=== PATIENT | male | born 1950 | race Caucasian/White ===

== ENCOUNTER → 2017-08-20 | Outpatient (CLI) | payer OTHER ==
[~2017-08-20] MED LIST: ALBUMIN 25% 100 ML SOLN IV ONE; LIDOCAINE 1% 300 MG/30 ML SDV ONE
== END ==
LOC: FIMAGING 13:39 → EDBD 14:30
PROC: 0W9G30Z Drainage of Peritoneal Cavity with Drainage Device, Percutaneous Approach (ICD-10-PCS; principal; 2017-08-20)
DX: R18.8 Other ascites (principal); K74.60 Unspecified cirrhosis of liver
CPT/HCPCS: 49083; P9047

== ENCOUNTER → 2017-09-10 | Outpatient (CLI) | payer OTHER | LOC: FIMAGING 13:54 | PROC: 0W9F3ZZ Drainage of Abdominal Wall, Percutaneous Approach (ICD-10-PCS; principal; 2017-09-10) | DX: R18.8 Other ascites (principal); K74.60 Unspecified cirrhosis of liver | CPT/HCPCS: 49083; P9047 ==

== ENCOUNTER → 2017-10-19 | Outpatient (CLI) | payer OTHER | LOC: FIMAGING 11:39 | PROC: 0W9G3ZZ Drainage of Peritoneal Cavity, Percutaneous Approach (ICD-10-PCS; principal; 2017-10-19) | DX: K74.60 Unspecified cirrhosis of liver (principal); R18.8 Other ascites | CPT/HCPCS: 49083; P9047 ==

== ENCOUNTER → 2017-10-29 | Outpatient (CLI) | payer OTHER | LOC: FIMAGING 11:48 | PROC: 0W9F30Z Drainage of Abdominal Wall with Drainage Device, Percutaneous Approach (ICD-10-PCS; principal; 2017-10-29) | DX: R18.8 Other ascites (principal) | CPT/HCPCS: 49083; P9047 ==

== ENCOUNTER 2017-11-02 16:03 | Emergency (ER) | payer OTHER ==
--- NOTE | 2017-11-02 16:52 | EDPHY ---
H & P Time Seen by Provider: 11/02/17 16:24 HPI/ROS: CHIEF COMPLAINT: "Umbilical hernia pain" HISTORY OF PRESENT ILLNESS: Patient is a 58-year-old male with a history of end -stage cirrhosis, repeat paracentesis and diabetes who presents to the emergency department with pain at his umbilicus secondary to a hernia. Patient states he has had a longstanding umbilical hernia. He also has a large right inguinal hernia. He has seen a surgeon for these but they did not recommend repair. Patient states he has had ongoing pain for the past day at his umbilicus. He feels as though there is slight bulge. He has had no nausea or vomiting. No diarrhea. No blood in his stools. No fever. REVIEW OF SYSTEMS: My complete review of systems is negative except as mentioned in the HPI. Past Medical/Surgical History: Includes cirrhosis, diabetes, hypothyroidism, kidney disease Smoking Status: Never smoked Physical Exam: Vitals noted GENERAL: Well-appearing, in no acute distress, alert. HEENT: Eyes normal to inspection, normal pharynx, no signs of dehydration. NECK: [No thyromegaly, no lymphadenopathy, supple. RESPIRATORY: Clear to auscultation bilaterally, no rales, rhonchi or wheezing. CVS: Regular rate and rhythm, no rubs, murmurs, or gallops. ABDOMEN: Soft, nontender, nondistended, no organomegaly. The patient has the small umbilical defect approximately 2cm in length. There is a small amount of bowel present. This was able to be reduced mechanically. Patient has a large right inguinal hernia. I am able to reduce this. BACK: Normal to inspection, no CVA tenderness. SKIN: Normal color, no rash, warm, dry. No pallor. EXTREMITIES: No pedal edema, no calf tenderness, no Homans sign or cords, no joint swelling. NEURO/PSYCH: Alert and oriented, normal mood and affect, normal motor sensory exam. Constitutional: Initial Vital Signs Temperature (C) 36.5 C 11/02/17 16:17 Heart Rate 68 11/02/17 16:17 Respiratory Rate 16 11/02/17 16:17 Blood Pressure 139/87 H 11/02/17 16:17 O2 Sat (%) 97 11/02/17 16:17 O2 Delivery Mode Room Air Allergies/Adverse Reactions: No Known Allergies Allergy (Unverified 11/02/17 16:14) Home Medications: Medication Instructions Recorded Lactulose 11/02/17 Lantus 11/02/17 Levothyroxine 11/02/17 Oxycodone HCl 11/02/17 Spironolactone-Hctz 25-25 Tab 11/02/17 Xifaxan 11/02/17 Xtampza ER 11/02/17 Medical Decision Making - Diagnostics Imaging Results: Imaging Impressions Abdomen/Pelvis CT 11/02/17 16:53 Impression: 1. Large amount of ascites with small periumbilical hernia and relatively large right inguinal hernia containing ascitic fluid extending into the right side of the scrotal sac. 2. Incidental nonobstructive calculus lower pole left kidney. 3. Mildly thickened bladder wall with trabeculations and diverticula suggestive of underlying bladder outlet obstruction. 4. Moderate splenomegaly. 5. Small lobulated liver compatible underlying cirrhosis. Tips shunt is in place. Findings discussed with Vibha Valerio M.D. at 17:23 hour, 11/02/2017. ED Course/Re-evaluation: In the emergency department I discussed possible etiologies with the patient. I answered all his questions. Patient's umbilical and inguinal hernia were reduced. CT was ordered. Laboratory studies were. CT of the abdomen pelvis: Please refer the dictated report. There is no strangulation or incarceration. Patient does have an umbilical hernia as well as a right inguinal hernia. Patient was also noted to have ascites. Patient's case panel is notable for a sodium 134. Potassium slightly high at 5.1. CO2 was 23. BUN was 49 and creatinine was elevated at 2.8. Glucose was 173. Patient's white count was 4.2. Hematocrit was low at 24. His platelets were low at 37. Patient has a history of renal dysfunction, anemia and thrombocytopenia. I discussed values with the patient. He states these are similar to his baseline. He has follow-up with the primary care physician. He was given on-call physicians contact information. He is also given contact information for Dr. Stanford from General surgery. He is given warnings prior to leaving. He will return with worsening symptoms. Differential Diagnosis: My differential includes but is not limited to umbilical hernia, inguinal hernia , strangulated hernia, incarcerated hernia, small-bowel obstruction, perforation - Data Points Laboratory Results: Laboratory Results 11/02/17 16:58 11/02/17 16:58 11/02/17 11/02/17 16:58 16:58 WBC 4.26 10^3/uL 10^3/uL (3.80-9.50) RBC 2.57 10^6/uL L 10^6/uL (4.40-6.38) Hgb 8.4 g/dL L g/dL (13.7-17.5) Hct 24.5 % L % (40.0-51.0) MCV 95.3 fL fL (81.5-99.8) MCH 32.7 pg pg (27.9-34.1) MCHC 34.3 g/dL g/dL (32.4-36.7) RDW 16.8 % H % (11.5-15.2) Plt Count 37 10^3/uL L 10^3/uL (150-400) MPV 9.7 fL fL (8.7-11.7) Neut % (Auto) 62.4 % % (39.3-74.2) Lymph % (Auto) 9.9 % L % (15.0-45.0) [place] % (Auto) 4.5 % % (4.5-13.0) Eos % (Auto) 22.3 % H % (0.6-7.6) Baso % (Auto) 0.7 % % (0.3-1.7) Nucleat RBC Rel Count 0.0 % % (0.0-0.2) Absolute Neuts (auto) 2.66 10^3/uL 10^3/uL (1.70-6.50) Absolute Lymphs (auto) 0.42 10^3/uL L 10^3/uL (1.00-3.00) Absolute Monos (auto) 0.19 10^3/uL L 10^3/uL (0.30-0.80) Absolute Eos (auto) 0.95 10^3/uL H 10^3/uL (0.03-0.40) Absolute Basos (auto) 0.03 10^3/uL 10^3/uL (0.02-0.10) Absolute Nucleated RBC 0.00 10^3/uL 10^3/uL (0-0.01) Immature Gran % 0.2 % % (0.0-1.1) Immature Gran # 0.01 10^3/uL 10^3/uL (0.00-0.10) RBC/WBC/PLT Morphology TNP Platelet Estimate DECREASED L (ADEQ) Sodium 134 mEq/L L mEq/L (135-145) Potassium 5.1 mEq/L H mEq/L (3.3-5.0) Chloride 108 mEq/L mEq/L (97-110) Carbon Dioxide 23 mEq/l mEq/l (22-31) Anion Gap 3 mEq/L L mEq/L (8-16) BUN 49 mg/dL H mg/dL (7-23) Creatinine 2.8 mg/dL H mg/dL (0.7-1.3) Estimated GFR 23 Glucose 173 mg/dL H mg/dL (70-100) Calcium 8.0 mg/dL L mg/dL (8.5-10.4) Departure - Departure Disposition: Home, Routine, Self-Care Clinical Impression: Abdominal pain Qualifiers: Abdominal location: periumbilical Qualified Code(s): R10.33 - Periumbilical pain Inguinal hernia Qualifiers: Obstruction and gangrene presence: without obstruction or gangrene Laterality: unilateral Recurrence: recurrent Qualified Code(s): K40.91 - Unilateral inguinal hernia, without obstruction or gangrene, recurrent Condition: Good Instructions: Umbilical Hernia (ED) Additional Instructions: Return with increasing pain, vomiting, fever or any other concerns. You been given follow-up information for Dr. ALEXIA Stanford. He is a general surgeon. He can help you with your hernias. Call to make an appointment. Referrals: Hussain Stanford MD [Medical Doctor] - 5-7 days, call for appt. Roman Soler MD [Medical Doctor] - 5-7 days, call for appt.
[2017-11-02 17:38] LABS: PLATELET COUNT 37 10^3/uL (150-400)
[2017-11-02 18:18] VITALS: BP 124/78
== END 2017-11-02 18:21 | disposition home or self-care (01) ==
DX: R10.9 Unspecified abdominal pain (principal); K42.9 Umbilical hernia without obstruction or gangrene; K40.90 Unilateral inguinal hernia, without obstruction or gangrene, not specified as recurrent; R18.8 Other ascites; K74.60 Unspecified cirrhosis of liver; E11.9 Type 2 diabetes mellitus without complications; E03.9 Hypothyroidism, unspecified

== ENCOUNTER → 2017-12-23 | Outpatient (CLI) | payer OTHER | LOC: FIMAGING 10:33 | PROVIDERS: ATTEND Internal Medicine | DX: K70.31 Alcoholic cirrhosis of liver with ascites (principal); K76.9 Liver disease, unspecified; N28.1 Cyst of kidney, acquired; R16.1 Splenomegaly, not elsewhere classified ==

== ENCOUNTER → 2018-03-22 | Outpatient (CLI) | payer OTHER ==
[~2018-03-22] MED LIST changes: -ALBUMIN 25% 100 ML SOLN IV ONE
== END ==
LOC: FIMAGING 08:20
PROVIDERS: ATTEND Internal Medicine
PROC: 0W9F3ZZ Drainage of Abdominal Wall, Percutaneous Approach (ICD-10-PCS; principal; 2018-03-22)
DX: K70.31 Alcoholic cirrhosis of liver with ascites (principal)

== ENCOUNTER → 2018-06-29 | Outpatient (CLI) | payer OTHER | LOC: FIMAGING 11:07 | PROC: 0W9G30Z Drainage of Peritoneal Cavity with Drainage Device, Percutaneous Approach (ICD-10-PCS; principal; 2018-06-29) | DX: R18.8 Other ascites (principal) ==